=== PATIENT | female | born 1960 | race African-American/Black ===

== ENCOUNTER 2020-12-01 13:03 | Inpatient (IN) ==
[2020-12-01 14:35] LABS: Basophils % 0.4 % (0.0-0.8); Eosinophils # 0.3 10*3/uL (0.0-0.87); Eosinophils % 2.6 % (0.00-10.9); Hematocrit 25.2 VOL% (35.7-47.0); Hemoglobin 7.5 GM/DL (12.0-16.0); Immature Granulocytes % 1.9 %; Immature Granulocytes Absolute 0.19 #; Lymphocytes # 1.8 10*3/uL (1.4-4.0); Lymphocytes % 17.9 % (21.3-54.2); Mean Corpuscular HGB Conc 29.8 GM/DL (32-36); Mean Corpuscular Volume 73.3 FL (87-102); Mean Platelet Volume 9.2 FL (9.6-12.0); Monocytes % 9.4 % (1.7-12.7); Neutrophils % 67.8 % (38.7-73.9); Platelet Count 426 T/CUMM (130-400); Red Blood Count 3.44 MC/CUMM (3.8-5.5); White Blood Count 10.1 T/CUMM (4-12)
[2020-12-01 14:53] LABS: Calcium 8.5 MG/DL (8.5-10.1); Osmolality,Calculated 274.7 MOS/KG (273-304); Potassium 4.2 MMOL/L (3.5-5.1)
[2020-12-01 15:24] LABS: Anisocytosis 3+; Eosinophils 5 % (0-10); Hypochromasia 4+; Lymphocytes 18 % (20-55); Microcytosis 2+; Poikilocytosis 1+; Segmented Neutrophils 72 % (50-85); Total Cells Counted 100
[2020-12-01 15:25] LABS: Platelet Estimate Adequate
[2020-12-01 15:25] LABS: Bilirubin,Urine Negative (Negative); Blood, Urine Moderate mg/dL (Negative); Glucose,Urine (UA) Negative (Negative); Hyaline Casts,Urine 37 /LPF (0-3); Ketones,Urine 5 mg/dL (Negative); Mucus,Urine Occasional /LPF (Occasional); Nitrite,Urine Negative (Negative); Protein,Urine 100 MG/DL; RBC,Urine 59 /HPF (0-4); Squamous Epithelial Cell,Urine Occasional /HPF (0-10); Urine Appearance CLOUDY (Clear); Urine Color Amber (Yellow); Urine Specific Gravity 1.023 (1.001-1.035); Urine Urobilinogen < 2.0 EU/DL (0.2-1.0); WBC,Urine 59 /HPF (0-6)
[2020-12-01] MEDS ORDERED: HYDROmorphone 2 MG/1 ML VIAL IV STA (17:00)
[2020-12-01] MEDS ORDERED: ONDANSETRON 4 MG/2 ML VIAL IV STA (17:11)
[2020-12-01] MEDS ORDERED: ONDANSETRON 4 MG/2 ML VIAL IV PRN (17:40)
[2020-12-01] MEDS ORDERED: ACETAMINOPHEN 325 MG TABLET PO PRN (17:40)
[2020-12-01] MEDS ORDERED: HYDROmorphone 2 MG/1 ML VIAL IV PRN (17:40)
[2020-12-01] MEDS ORDERED: DEXTROSE 5% NACL 0.45% 1,000 ML IV SCH (18:00)
[2020-12-01] MEDS: FERROUS SULFATE 325 MG TABLET PO SCH (21:25)
[2020-12-01] MEDS ORDERED: diphenhydrAMINE CAP 25 MG CAPSULE PO PRN (22:08)
[2020-12-01] MEDS ORDERED: ACETAMINOPHEN/CODEINE 300-30 MG TABLET PO PRN (22:49)
[2020-12-02] MEDS ORDERED: ALBUTEROL 2.5 MG/3 ML NEB RESP TX PRN (00:17)
[2020-12-02] MEDS ORDERED: ACETAMINOPHEN 500 MG TABLET PO PRN (03:16)
[2020-12-02 03:52] LABS: Basophils % 0.5 % (0.0-0.8); Eosinophils # 0.2 10*3/uL (0.0-0.87); Eosinophils % 2.8 % (0.00-10.9); Hematocrit 24.4 VOL% (35.7-47.0); Hemoglobin 7.4 GM/DL (12.0-16.0); Immature Granulocytes % 1.6 %; Immature Granulocytes Absolute 0.14 #; Lymphocytes # 1.6 10*3/uL (1.4-4.0); Lymphocytes % 18.6 % (21.3-54.2); Mean Corpuscular HGB Conc 30.3 GM/DL (32-36); Mean Corpuscular Volume 72.2 FL (87-102); Mean Platelet Volume 8.7 FL (9.6-12.0); Monocytes % 8.5 % (1.7-12.7); Platelet Count 399 T/CUMM (130-400); Red Blood Count 3.38 MC/CUMM (3.8-5.5); White Blood Count 8.6 T/CUMM (4-12)
[2020-12-02 04:16] LABS: Hypochromasia 2+; Microcytosis 1+
[2020-12-02 04:17] LABS: Platelet Estimate Adequate
[2020-12-02] MEDS: FERROUS SULFATE 325 MG TABLET PO SCH ×2 (08:59→20:14)
[2020-12-02] MEDS: ENOXAPARIN 40 MG/0.4 ML SYRINGE SUBCUT SCH (09:02)
[2020-12-02] MEDS: PANTOPRAZOLE 40 MG TABLET PO SCH (09:02)
[2020-12-02] MEDS ORDERED: SODIUM CHLORIDE 0.9% 100 ML IV ONE (16:19)
[2020-12-02] MEDS: ceFAZolin 1,000 MG in SYRINGE 1 EACH IV SCH ×2 (16:30→23:55)
[2020-12-02] MEDS ORDERED: SIMETHICONE CHEW 80 MG TABLET PO PRN (17:12)
[2020-12-02] MEDS: TRIAMCINOLONE 0.025% CREAM 15 GM TUBE TOP SCH ×2 (18:04→21:00)
[2020-12-02] MEDS: ACETAMINOPHEN/CODEINE 300-30 MG TABLET PO PRN (21:32)
[2020-12-03] MEDS: ACETAMINOPHEN/CODEINE 300-30 MG TABLET PO PRN (03:27)
[2020-12-03] MEDS: ceFAZolin 1,000 MG in SYRINGE 1 EACH IV SCH ×2 (09:12→16:32)
[2020-12-03] MEDS ORDERED: SODIUM CHLORIDE 0.9% 100 ML IV ONE ×2 (09:17→16:33)
[2020-12-03] MEDS: FERROUS SULFATE 325 MG TABLET PO SCH ×2 (10:18→20:30)
[2020-12-03] MEDS: PANTOPRAZOLE 40 MG TABLET PO SCH (10:18)
[2020-12-03] MEDS: ENOXAPARIN 40 MG/0.4 ML SYRINGE SUBCUT SCH (10:19)
[2020-12-03] MEDS: TRIAMCINOLONE 0.025% CREAM 15 GM TUBE TOP SCH (19:50)
[2020-12-04] MEDS: ceFAZolin 1,000 MG in SYRINGE 1 EACH IV SCH ×2 (00:09→07:49)
[2020-12-04] MEDS ORDERED: ALUM/MAG/SIMETH/LIDO VISC 1:1 30 ML BOTTLE PO ONE (07:45)
[2020-12-04] MEDS ORDERED: DOCUSATE SODIUM 100 MG CAPSULE PO PRN (07:46)
[2020-12-04 08:15] VITALS: BP 131/67
[2020-12-04] MEDS: ENOXAPARIN 40 MG/0.4 ML SYRINGE SUBCUT SCH (09:30)
[2020-12-04] MEDS: PANTOPRAZOLE 40 MG TABLET PO SCH (09:33)
[2020-12-04] MEDS: FERROUS SULFATE 325 MG TABLET PO SCH (09:33)
== END 2020-12-04 10:20 | disposition home or self-care (01) | DRG 392 ==
LOC: N.ED 13:03 → N.EDINP 17:40 → N.OB 18:37
PROVIDERS: ADMIT Obstetrics & Gynecology; ATTEND Obstetrics & Gynecology

== ENCOUNTER 2021-02-11 09:43 | Inpatient (IN) ==
[2021-02-11] MEDS ORDERED: SODIUM CHLORIDE 0.9% 1,000 ML IV STA ×2 (13:11→14:29)
[2021-02-11] MEDS ORDERED: ONDANSETRON 4 MG/2 ML VIAL IV STA (13:11)
[2021-02-11 13:36] LABS: Basophils % 0.6 % (0.0-0.8); Eosinophils # 0.1 10*3/uL (0.0-0.87); Eosinophils % 1.7 % (0.00-10.9); Hematocrit 28.4 VOL% (35.7-47.0); Hemoglobin 8.5 GM/DL (12.0-16.0); Immature Granulocytes % 0.4 %; Immature Granulocytes Absolute 0.02 #; Lymphocytes # 1.9 10*3/uL (1.4-4.0); Lymphocytes % 36.2 % (21.3-54.2); Mean Corpuscular HGB Conc 29.9 GM/DL (32-36); Mean Corpuscular Volume 68.3 FL (87-102); Mean Platelet Volume 8.9 FL (9.6-12.0); Monocytes % 2.1 % (1.7-12.7); Platelet Count 495 T/CUMM (130-400); Red Blood Count 4.16 MC/CUMM (3.8-5.5); Red Cell Distribution Width 17.2 % (9.3-17.3); White Blood Count 5.3 T/CUMM (4-12)
[2021-02-11 13:58] LABS: Bilirubin,Total 0.4 MG/DL (0.2-1.0); Calcium 9.9 MG/DL (8.5-10.1); Osmolality,Calculated 268.8 MOS/KG (273-304); Potassium 5.6 MMOL/L (3.5-5.1); Total Protein 9.5 G/DL (6.4-8.2)
[2021-02-11 13:59] LABS: Anisocytosis 1+; Eosinophils 2 % (0-10); Hypochromasia 1+; Lymphocytes 40 % (20-55); Segmented Neutrophils 54 % (50-85); Total Cells Counted 100
[2021-02-11 14:00] LABS: Platelet Estimate Adequate
[2021-02-11] MEDS ORDERED: GLUCAGON 1 MG VIAL IM PRN (15:43)
[2021-02-11] MEDS ORDERED: ACETAMINOPHEN 325 MG TABLET PO PRN (15:43)
[2021-02-11] MEDS ORDERED: DEXTROSE 50% 25 GM/50 ML VIAL IV PRN (15:43)
[2021-02-11] MEDS ORDERED: PROMETHAZINE 25 MG/1 ML VIAL IM PRN (15:43)
[2021-02-11] MEDS ORDERED: ONDANSETRON 4 MG/2 ML VIAL IV PRN (15:43)
[2021-02-11] MEDS ORDERED: ENOXAPARIN 40 MG/0.4 ML SYRINGE SUBCUT SCH (16:00)
[2021-02-11] MEDS: PANTOPRAZOLE 40 MG VIAL IV SCH (16:33)
[2021-02-11] MEDS: SODIUM CHLORIDE 0.9% 1,000 ML IV SCH (18:06)
[2021-02-11] MEDS: FERROUS SULFATE 325 MG TABLET PO SCH (20:32)
[2021-02-11 21:23] LABS: Bilirubin,Urine Negative (Negative); Blood, Urine Moderate mg/dL (Negative); Glucose,Urine (UA) Negative (Negative); Ketones,Urine Negative (Negative); Nitrite,Urine Negative (Negative); Protein,Urine Negative; RBC,Urine 8 /HPF (0-4); Squamous Epithelial Cell,Urine Occasional /HPF (0-10); Urine Appearance Slightly Hazy (Clear); Urine Color Yellow (Yellow); Urine Specific Gravity 1.014 (1.001-1.035); Urine Urobilinogen < 2.0 EU/DL (0.2-1.0)
[2021-02-12] MEDS: SODIUM CHLORIDE 0.9% 1,000 ML IV SCH ×3 (02:19→17:58)
[2021-02-12 06:10] LABS: Basophils % 1.5 % (0.0-0.8); Eosinophils # 0.1 10*3/uL (0.0-0.87); Immature Granulocytes % 0.4 %; Immature Granulocytes Absolute 0.01 #; Lymphocytes # 1.6 10*3/uL (1.4-4.0); Lymphocytes % 60.1 % (21.3-54.2); Mean Corpuscular HGB Conc 29.6 GM/DL (32-36); Mean Corpuscular Volume 69.9 FL (87-102); Mean Platelet Volume 9.1 FL (9.6-12.0); Red Blood Count 3.29 MC/CUMM (3.8-5.5)
[2021-02-12 06:11] LABS: Hemoglobin 6.8 GM/DL (12.0-16.0); Platelet Count 324 T/CUMM (130-400); White Blood Count 2.6 T/CUMM (4-12)
[2021-02-12 06:20] LABS: Calcium 8.6 MG/DL (8.5-10.1); Potassium 4.9 MMOL/L (3.5-5.1)
[2021-02-12 06:38] LABS: Eosinophils 3 % (0-10); Lymphocytes 53 % (20-55); Platelet Estimate Normal; Segmented Neutrophils 35 % (50-85)
[2021-02-12 06:39] LABS: Hypochromasia 2+; Microcytosis 2+; Total Cells Counted 100
[2021-02-12] MEDS ORDERED: SODIUM CHLORIDE 0.9% 1,000 ML IV PRN (08:00)
[2021-02-12 08:28] LABS: % Iron Saturation 7.9 % (18-50); Ferritin 185.7 ng/ml (8-252)
[2021-02-12] MEDS: PANTOPRAZOLE 40 MG VIAL IV SCH (08:51)
[2021-02-12] MEDS: cefTRIAXone 1,000 MG in SODIUM CHLORIDE 0.9% 100 ML IV SCH (08:51)
[2021-02-12] MEDS: FERROUS SULFATE 325 MG TABLET PO SCH ×2 (08:51→21:24)
[2021-02-12 21:51] LABS: Hematocrit 28.3 VOL% (35.7-47.0)
[2021-02-12 22:02] LABS: Hemoglobin 8.5 GM/DL (12.0-16.0)
[2021-02-13] MEDS: SODIUM CHLORIDE 0.9% 1,000 ML IV SCH ×4 (03:18→19:37)
[2021-02-13 06:19] LABS: Basophils % 0.9 % (0.0-0.8); Eosinophils # 0.1 10*3/uL (0.0-0.87); Eosinophils % 2.8 % (0.00-10.9); Hematocrit 28.5 VOL% (35.7-47.0); Hemoglobin 8.5 GM/DL (12.0-16.0); Lymphocytes # 1.5 10*3/uL (1.4-4.0); Lymphocytes % 68.5 % (21.3-54.2); Mean Corpuscular HGB Conc 29.8 GM/DL (32-36); Mean Corpuscular Volume 75.4 FL (87-102); Mean Platelet Volume 8.6 FL (9.6-12.0); Monocytes % 4.7 % (1.7-12.7); Neutrophils % 23.1 % (38.7-73.9); Platelet Count 257 T/CUMM (130-400); Red Blood Count 3.78 MC/CUMM (3.8-5.5); Red Cell Distribution Width 20.4 % (9.3-17.3); White Blood Count 2.1 T/CUMM (4-12)
[2021-02-13 06:39] LABS: Atypical Lymphocytes Few; Eosinophils 3 % (0-10); Hypochromasia 1+; Lymphocytes 69 % (20-55); Microcytosis 1+; Platelet Estimate Adequate; Segmented Neutrophils 22 % (50-85); Total Cells Counted 100
[2021-02-13] MEDS: FERROUS SULFATE 325 MG TABLET PO SCH ×2 (09:37→21:15)
[2021-02-13] MEDS: PANTOPRAZOLE 40 MG VIAL IV SCH (09:37)
[2021-02-13] MEDS: FILGRASTIM-SNDZ 300 MCG/0.5 ML SYRINGE SUBCUT SCH (09:38)
[2021-02-13] MEDS: cefTRIAXone 1,000 MG in SODIUM CHLORIDE 0.9% 100 ML IV SCH (09:38)
[2021-02-13 13:01] LABS: Calcium 8.4 MG/DL (8.5-10.1)
[2021-02-14 04:53] LABS: Basophils % 0.5 % (0.0-0.8); Eosinophils # 0.1 10*3/uL (0.0-0.87); Eosinophils % 2.7 % (0.00-10.9); Hematocrit 28.5 VOL% (35.7-47.0); Hemoglobin 8.7 GM/DL (12.0-16.0); Immature Granulocytes % 9.8 %; Immature Granulocytes Absolute 0.18 #; Lymphocytes % 55.7 % (21.3-54.2); Mean Corpuscular HGB Conc 30.5 GM/DL (32-36); Mean Corpuscular Volume 73.8 FL (87-102); Mean Platelet Volume 8.8 FL (9.6-12.0); Neutrophils % 25.3 % (38.7-73.9); Platelet Count 223 T/CUMM (130-400); Red Blood Count 3.86 MC/CUMM (3.8-5.5); Red Cell Distribution Width 21.2 % (9.3-17.3); White Blood Count 1.8 T/CUMM (4-12)
[2021-02-14 05:20] LABS: Band Neutrophils 3 % (0-10); Eosinophils 3 % (0-10); Hypochromasia 1+; Lymphocytes 52 % (20-55); Microcytosis 1+; Platelet Estimate Adequate; Segmented Neutrophils 36 % (50-85); Total Cells Counted 100
[2021-02-14 05:21] LABS: Atypical Lymphocytes Few
[2021-02-14 05:27] LABS: Albumin 2.7 G/DL (3.4-5.0); Bilirubin,Total 0.4 MG/DL (0.2-1.0); Calcium 8.3 MG/DL (8.5-10.1); Osmolality,Calculated 272.8 MOS/KG (273-304); Potassium 4.4 MMOL/L (3.5-5.1); Total Protein 6.8 G/DL (6.4-8.2)
[2021-02-14] MEDS: SODIUM CHLORIDE 0.9% 1,000 ML IV SCH ×3 (06:35→20:58)
[2021-02-14] MEDS: cefTRIAXone 1,000 MG in SODIUM CHLORIDE 0.9% 100 ML IV SCH (08:59)
[2021-02-14] MEDS: PANTOPRAZOLE 40 MG VIAL IV SCH (09:00)
[2021-02-14] MEDS: FERROUS SULFATE 325 MG TABLET PO SCH ×2 (09:00→20:58)
[2021-02-14] MEDS: FILGRASTIM-SNDZ 300 MCG/0.5 ML SYRINGE SUBCUT SCH (09:00)
[2021-02-14] MEDS ORDERED: ZALEPLON 5 MG CAPSULE PO PRN (23:11)
[2021-02-15] MEDS: SODIUM CHLORIDE 0.9% 1,000 ML IV SCH (03:39)
[2021-02-15 07:12] LABS: Basophils % 0.3 % (0.0-0.8); Eosinophils # 0.1 10*3/uL (0.0-0.87); Eosinophils % 3.5 % (0.00-10.9); Hematocrit 27.6 VOL% (35.7-47.0); Hemoglobin 8.5 GM/DL (12.0-16.0); Immature Granulocytes % 13.2 %; Immature Granulocytes Absolute 0.41 #; Lymphocytes # 1.4 10*3/uL (1.4-4.0); Lymphocytes % 44.1 % (21.3-54.2); Mean Corpuscular HGB Conc 30.8 GM/DL (32-36); Mean Corpuscular Volume 75.2 FL (87-102); Monocytes % 7.1 % (1.7-12.7); Neutrophils % 31.8 % (38.7-73.9); Platelet Count 201 T/CUMM (130-400); Red Blood Count 3.67 MC/CUMM (3.8-5.5); Red Cell Distribution Width 21.6 % (9.3-17.3); White Blood Count 3.1 T/CUMM (4-12)
[2021-02-15 07:30] VITALS: BP 134/58
[2021-02-15 07:30] LABS: Albumin 2.6 G/DL (3.4-5.0); Bilirubin,Total 0.8 MG/DL (0.2-1.0); Calcium 8.1 MG/DL (8.5-10.1); Osmolality,Calculated 275.5 MOS/KG (273-304); Total Protein 6.4 G/DL (6.4-8.2)
[2021-02-15 07:48] LABS: Band Neutrophils 6 % (0-10); Hypochromasia 1+; Lymphocytes 52 % (20-55); Metamyelocytes 2 %; Microcytosis 1+; Segmented Neutrophils 36 % (50-85); Total Cells Counted 100
[2021-02-15 07:49] LABS: Atypical Lymphocytes Few
[2021-02-15 07:50] LABS: Platelet Estimate Normal
[2021-02-15] MEDS: FERROUS SULFATE 325 MG TABLET PO SCH (08:46)
[2021-02-15] MEDS: FILGRASTIM-SNDZ 300 MCG/0.5 ML SYRINGE SUBCUT SCH (08:46)
[2021-02-15] MEDS: PANTOPRAZOLE 40 MG VIAL IV SCH (08:46)
[2021-02-15] MEDS ORDERED: HEPARIN LOCK FLUSH 500 UNIT/5 ML SYRINGE IV ONE (09:26)
== END 2021-02-15 10:05 | disposition home or self-care (01) | DRG 375 ==
LOC: N.ED 09:43 → N.EDINP 09:43 → SUATTDRO 15:43 → N.4E 16:14
PROVIDERS: ADMIT Phlebology; ATTEND Internal Medicine

== ENCOUNTER 2022-03-31 16:57 | Observation (INO) ==
[2022-03-31] MEDS ORDERED: PANTOPRAZOLE 40 MG VIAL IV STA (19:38)
[2022-03-31] MEDS ORDERED: HYDROmorphone 1 MG/1 ML SYRINGE IV STA (19:38)
[2022-03-31] MEDS ORDERED: SODIUM CHLORIDE 0.9% 500 ML IV STA (19:38)
[2022-03-31] MEDS ORDERED: ONDANSETRON 4 MG/2 ML VIAL IV STA (19:38)
[2022-03-31 19:58] LABS: Basophils # 0.1 10*3/uL (0.0-0.2); Basophils % 0.7 % (0.0-0.8); Eosinophils # 0.1 10*3/uL (0.0-0.87); Eosinophils % 1.4 % (0.00-10.9); Hematocrit 30.6 VOL% (35.7-47.0); Hemoglobin 9.1 GM/DL (12.0-16.0); Immature Granulocytes % 1.1 %; Immature Granulocytes Absolute 0.11 #; Lymphocytes # 1.4 10*3/uL (1.4-4.0); Lymphocytes % 13.8 % (21.3-54.2); Mean Corpuscular HGB Conc 29.7 GM/DL (32-36); Mean Corpuscular Volume 78.7 FL (87-102); Mean Platelet Volume 8.5 FL (9.6-12.0); Monocytes # 0.6 10*3/uL (0.11-0.8); Monocytes % 5.7 % (1.7-12.7); Neutrophils % 77.3 % (38.7-73.9); Platelet Count 327 T/CUMM (130-400); Red Blood Count 3.89 MC/CUMM (3.8-5.5); Red Cell Distribution Width 19.1 % (9.3-17.3); White Blood Count 10.3 T/CUMM (4-12)
[2022-03-31 20:55] LABS: Bacteria,Urine Occasional /HPF (Few); Mucus,Urine Occasional /LPF (Occasional); RBC,Urine 1 /HPF (0-4); Squamous Epithelial Cell,Urine Occasional /HPF (0-10)
[2022-03-31 20:57] LABS: Bilirubin,Urine Negative (Negative); Blood, Urine Trace mg/dL (Negative); Glucose,Urine (UA) Negative (Negative); Ketones,Urine Negative (Negative); Nitrite,Urine Negative (Negative); Protein,Urine Negative (Negative); Urine Appearance Clear (Clear); Urine Color Yellow (Yellow); Urine Specific Gravity 1.015 (1.001-1.035); Urine Urobilinogen 0.2 eU/dL (<2.0); Urine pH 6.5 (4.5-8.0)
[2022-03-31 20:59] LABS: Alanine Aminotransferase 10 U/L (13-56); Albumin 2.4 G/DL (3.4-5.0); Alkaline Phosphatase 110 U/L (45-117); Amylase 22 U/L (25-115); Aspartate Amino Transferase 81 U/L (0-37); Blood Urea Nitrogen 11 MG/DL (7-18); Calcium 7.6 MG/DL (8.5-10.1); Carbon Dioxide 30 MMOL/L (21-32); Chloride 99 MMOL/L (98-107); Glucose 98 MG/DL (74-106); Osmolality,Calculated 279.3 MOS/KG (273-304); Potassium 2.7 MMOL/L (3.5-5.1); Sodium 141 MMOL/L (136-145); Total Protein 7.3 G/DL (6.4-8.2)
[2022-03-31] MEDS ORDERED: ONDANSETRON 4 MG/2 ML VIAL IV PRN (21:34)
[2022-03-31] MEDS ORDERED: ACETAMINOPHEN 325 MG TABLET PO PRN (21:34)
[2022-03-31] MEDS ORDERED: GLUCAGON 1 MG VIAL IM PRN (21:34)
[2022-03-31] MEDS ORDERED: ALUMINUM/MAGNES/SIMETH MAX STR 30 ML UDCUP PO PRN (21:34)
[2022-03-31] MEDS ORDERED: MORPHINE 2 MG/1 ML SYRINGE IV PRN (21:40)
[2022-03-31] MEDS ORDERED: POTASSIUM CHLORIDE 20 MEQ TABLET PO PRN (21:41)
[2022-03-31] MEDS ORDERED: MAGNESIUM SULF RIDER 2 GM/50 ML PREMIX IV PRN (21:41)
[2022-03-31] MEDS ORDERED: POTASSIUM CHLORIDE RIDER 10 MEQ/100 ML PREMIX IV PRN (21:41)
[2022-03-31] MEDS ORDERED: MAGNESIUM SULF RIDER 4 GM/100 ML PREMIX IV PRN (21:41)
[2022-03-31] MEDS ORDERED: DEXTROSE 10% 250 ML BAG IV PRN (21:50)
[2022-03-31] MEDS ORDERED: ENOXAPARIN 40 MG/0.4 ML SYRINGE SUBCUT SCH (22:00)
[2022-04-01 00:51] LABS: Basophils # 0.1 10*3/uL (0.0-0.2); Basophils % 0.6 % (0.0-0.8); Eosinophils # 0.2 10*3/uL (0.0-0.87); Eosinophils % 1.3 % (0.00-10.9); Hematocrit 27.8 VOL% (35.7-47.0); Hemoglobin 8.1 GM/DL (12.0-16.0); Immature Granulocytes % 0.9 %; Immature Granulocytes Absolute 0.11 #; Lymphocytes # 1.9 10*3/uL (1.4-4.0); Lymphocytes % 15.5 % (21.3-54.2); Mean Corpuscular HGB Conc 29.1 GM/DL (32-36); Mean Platelet Volume 8.6 FL (9.6-12.0); Monocytes # 0.9 10*3/uL (0.11-0.8); Monocytes % 7.7 % (1.7-12.7); Platelet Count 304 T/CUMM (130-400); Red Blood Count 3.52 MC/CUMM (3.8-5.5); Red Cell Distribution Width 18.9 % (9.3-17.3); White Blood Count 12.2 T/CUMM (4-12)
[2022-04-01 01:03] LABS: Calcium 7.1 MG/DL (8.5-10.1); Osmolality,Calculated 271.8 MOS/KG (273-304)
[2022-04-01 01:10] LABS: Potassium 2.3 MMOL/L (3.5-5.1)
[2022-04-01] MEDS: POTASSIUM BICARB EFFERVESCENT 20 MEQ TAB.EFF PO SCH ×2 (03:19→10:44)
[2022-04-01] MEDS ORDERED: cefTRIAXone 1,000 MG in SODIUM CHLORIDE 0.9% 100 ML IV SCH (04:00)
[2022-04-01] MEDS ORDERED: SODIUM CHLOR 0.9% KCL 40 MEQ 40 MEQ/1,000 ML BAG IV SCH (04:00)
[2022-04-01] MEDS ORDERED: PANTOPRAZOLE 40 MG TABLET PO SCH (09:00)
[2022-04-01] MEDS ORDERED: DOCUSATE SODIUM 100 MG CAPSULE PO SCH (09:00)
[2022-04-01] MEDS ORDERED: MAGNESIUM OXIDE 400 MG TABLET PO SCH (09:00)
[2022-04-01] MEDS ORDERED: BENZOCAINE/MENTHOL LOZENGE 18/BOX PO PRN (10:02)
[2022-04-01] MEDS ORDERED: APIXABAN 5 MG TABLET PO SCH (11:30)
[2022-04-01 12:35] VITALS: BP 132/71
== END 2022-04-01 15:41 | disposition hospice, home (50) ==
LOC: N.ED 16:57 → N.EDINP 16:57 → SUATTDRO 21:34 → N.EDINP 23:20 → N.TELEN 23:33
PROVIDERS: ADMIT Internal Medicine; ATTEND Internal Medicine